=== PATIENT | female | born 1990 | race Two or more races ===

== ENCOUNTER 2023-06-10 18:54 | Emergency (ER) | payer MEDICAID ==
[~2023-06-10] VITALS: Ht 152.4 cm; Wt 79.4 kg
[2023-06-10 19:06] VITALS: BP 156/100; TEMP 98
[2023-06-10] MEDS ORDERED: IBUPROFEN 400 MG TABLET ONE (20:26)
[2023-06-10] MEDS: IBUPROFEN 400 MG TABLET PO ONE (20:31)
[2023-06-10 21:19] VITALS: O2SAT 100
== END 2023-06-10 21:20 | disposition home or self-care (01) ==
LOC: ER 19:12
DX: S50.311A Abrasion of right elbow, initial encounter (principal); M25.562 Pain in left knee; V09.9XXA Pedestrian injured in unspecified transport accident, initial encounter; Y93.89 Activity, other specified; Y92.89 Other specified places as the place of occurrence of the external cause; Y99.8 Other external cause status
CPT/HCPCS: 73564-TC